=== PATIENT | female | born 1930 | race Caucasian/White ===

== ENCOUNTER → 2016-11-05 | Outpatient (CLI) | payer MEDICARE, BC ==
[~2016-11-05] MED LIST: ACET325T11 PO; ADVI200C9 PO; CROM5.2S; MAGN500T4 PO
[2016-11-05 16:03] LABS: BASOPHIL % 0.4 % (0.0-2.0); EOSINOPHIL % 0.7 % (0.0-4.0); HEMATOCRIT 40.9 % (35.0-46.0); HEMO FLAGS DIFF FINAL; LYMPH % 29.1 % (9.0-44.0); LYMPHOCYTE # 1.9 TH/MM3 (1.0-4.8); MEAN CELL VOLUME 90.2 FL (80.0-100.0); MEAN CORPUSCULAR HEMOGLOBIN 29.1 PG (27.0-34.0); MEAN CORPUSCULAR HGB CONC 32.3 % (32.0-36.0); MONO % 7.9 % (0.0-8.0); NEUT % 61.9 % (16.0-70.0); PLATELET COUNT 185 TH/MM3 (150-450); RED BLOOD COUNT 4.54 MIL/MM3 (4.00-5.30); RED CELL DISTRIBUTION WIDTH 13.7 % (11.6-17.2); WHITE BLOOD COUNT 6.5 TH/MM3 (4.0-11.0)
[2016-11-05 16:27] LABS: ANION GAP 6 MEQ/L (5-15); AST (GOT) 20 U/L (15-37); BICARBONATE 29.7 MEQ/L (21.0-32.0); BLOOD UREA NITROGEN 16 MG/DL (7-18); CHLORIDE 105 MEQ/L (98-107); GLOMERULAR FILTRATION RATE 68 ML/MIN (>89); GLUCOSE,FASTING 82 MG/DL (74-99); SODIUM (NA) 141 MEQ/L (136-145)
[2016-11-05 16:38] LABS: ALKALINE PHOSPHATASE 95 U/L (45-117); ALT (GPT) 20 U/L (10-53); HDL CHOLESTEROL 66.6 MG/DL (40.0-60.0); LDL CHOLESTEROL 129 MG/DL (0-99); TOTAL BILIRUBIN ADULT 0.8 MG/DL (0.2-1.0)
[2016-11-05 16:47] LABS: WESTERGREN SEDIMENTATION RATE 22 mm/hr (0-30)
== END ==
LOC: PLAB 11:24
PROVIDERS: ATTEND Family Medicine
DX: I10 Essential (primary) hypertension (principal); E78.2 Mixed hyperlipidemia; G25.0 Essential tremor; M85.80 Other specified disorders of bone density and structure, unspecified site; M62.81 Muscle weakness (generalized); R25.2 Cramp and spasm
CPT/HCPCS: 36415; 80053; 80061; 83735; 84443; 85025; 85652

== ENCOUNTER 2017-09-05 20:57 | Emergency (ER) | END 2017-09-06 00:02 | disposition home or self-care (01) | DX: J40 Bronchitis, not specified as acute or chronic (principal); B34.9 Viral infection, unspecified ==

== ENCOUNTER 2018-03-19 05:14 | Inpatient (IN) ==
[2018-03-19] MEDS ORDERED: Chlorhexidine Gluconate 2% 1 Pack (2 Cloths) TOPICAL ONE (05:42)
[2018-03-19] MEDS ORDERED: Metoprolol Tartrate 25 MG Tablet PO ONE (05:42)
[2018-03-19] MEDS ORDERED: Dexamethasone Inj 20 MG/5 ML Vial IV.PUSH ONE (05:44)
[2018-03-19] MEDS ORDERED: Chlorhexidine 4% Topical 120 APPLIC/120 ML Bottle TOPICAL SCH (05:45)
[2018-03-19] MEDS ORDERED: ceFAZolin 2 GM Premix Inj 2 GM/50 ML PIGGYBACK IV.SIG SCH (06:00)
[2018-03-19] MEDS ORDERED: Sodium Chlor 0.9% Inj 500 ML IV.SIG SCH (06:00)
[2018-03-19] MEDS ORDERED: Vancomycin Inj 1,000 MG in Sodium Chlor 0.9% Inj 250 ML IV.SIG SCH (06:00)
[2018-03-19] MEDS ORDERED: Sodium Chlor 0.9% Inj 40 ML, Bupivacaine Liposo PF 1.3% Inj 20 ML P-ARTICULR SCH ×2 (08:30)
[2018-03-19] MEDS ORDERED: TRANEXAMIC ACID IV.SIG SCH ×2 (08:30→13:00)
[2018-03-19] MEDS ORDERED: SODIUM CHLOR 0.9% IV.SIG SCH ×2 (08:30→13:00)
[2018-03-19] MEDS ORDERED: Aluminum/Magnesium/Simethacone Susp 30 ML UDC PO PRN (10:20)
[2018-03-19] MEDS ORDERED: Bisacodyl 10 MG Supp RECTAL PRN (10:20)
[2018-03-19] MEDS ORDERED: Post-op Orders (for Pharmacy) OTHER STA (10:20)
[2018-03-19] MEDS ORDERED: Morphine Inj 4 MG/ML Vial IV.PUSH PRN (10:20)
--- NOTE | 2018-03-19 10:26 | P.OP ---
- Preoperative Diagnosis (1) Osteoarthritis of left hip - Postoperative Diagnosis (1) Osteoarthritis of left hip Date of procedure: 03/19/18 Procedure: left total hip arthroplasty Anesthesia: GETA Surgeon: Danie Alvarez MD Thermal Spray Operator: PEBBLES Acosta The surgical procedure was assisted by my Advanced Registered Nurse Practitioner. My RIB MATCHER AND FITTER presence was necessary throughout this case for the manipulation and positioning of the surgical extremity. My RIB MATCHER AND FITTER was assisting me throughout the duration of this procedure. The skill set of an Advance Registered Nurse Practitioner was medically necessary to complete this procedure. During the surgical case, the certified surgical technician was working at the back table and the Advance Registered Nurse Practitioner was directly assisting me. Operation and Findings: IMPLANT DESCRIPTION (i'mmauy): 1. Thornton Gription Cup, acetabular size 50. 2. Thornton AltrX polyethylene, neutral. 4. Corail femoral stem size 11, no collar, standard offset. 5. Femoral head/neck metal, 32, +1. ESTIMATED BLOOD LOSS: 200 cc. JUSTIFICATION FOR PROCEDURE: The patient has end-stage osteoarthritis to the hip. There is an attached conservative measures pathway form in the chart that describes the nonoperative measures that were undertaken prior to consideration of surgical management. The patient understood the risks and benefits of surgical management. See my office notes for further details. PROCEDURE: The patient was brought back to the operative theatre. Adequate anesthesia was obtained. The patient received intravenous vancomycin and Ancef. The patient was carefully placed on the operative table. The lower extremity was prepped and draped in the usual sterile fashion. Fluoroscopic images were obtained. We made a standard anterior incision over the hip. We dissected through the TFL fascia, exposing the anterior capsule. Arthrotomy was performed in a T-shaped fashion. The capsule was tagged with a #2 FiberWire. End-stage arthritis was identified. Osteotomy was performed through the femoral neck exposing the acetabulum. Remnants of the labrum were resected and osteophytes were removed. We sequentially reamed the acetabulum. We trialed the hip and placed the final cup into position. This was done under fluoroscopic guidance to obtain the appropriate inclination and anteversion. A manhole cover was placed into the acetabular component. We then placed the final polyethylene into position and confirmed that it was well seated. Capsular attachments on the calcar and the inner aspect of the greater trochanter were resected. On the proximal aspect of the femur we used a rongeur , box osteotome, canal finder, sequential broaches and lateralizing rasp. We calcar planed the proximal femur. Then thoroughly irrigated the wound. We trialed the hip with the appropriate size stem. We placed the final stem in to position and trialed again. The hip was stable while it was externally rotated 70 degrees when the leg was lowered to the floor. The final head was applied, and final fluoroscopic images were obtained. The wound was thoroughly irrigated again. Interarticular injection of liposomal bupivacaine was given. The capsule was closed with #2 FiberWire and #1 Vicryl. The deep fascia was closed with a #2 Stratafix, followed by 2-0 Vicryl in the skin and Dermabond dressing. Postop plan is to weight-bear as tolerated. DVT prophylaxis will be performed with SCDs, TAY hose, early mobilization, and aspirin.
--- NOTE | 2018-03-19 10:53 | XR ---
EXAM DATE: 03/19/2018 10:23 AM EST AGE/SEX: 87 years / Female INDICATIONS: Post-op total left hip arthroplasty. CLINICAL DATA: This is the patient's initial encounter. Patient reports that signs and symptoms have been present for 1 day and indicates a pain score of Nonresponsive. MEDICAL/SURGICAL HISTORY: Non-responsive. . Total right hip arthroplasty. COMPARISON: No prior exams available for comparison. FINDINGS: Intraoperative examination demonstrates the patient's orthopedic hardware to be in excellent position . Alignment is good. CONCLUSION: Orthopedic hardware in excellent position. Electronically signed by: Cm Bernardo MD 03/19/2018 10:51 AM EST
[2018-03-19] MEDS ORDERED: *morphine SULFATE 4 MG/ML PERIprocedure ONLY ONE ×2 (11:01→11:28)
[2018-03-19] MEDS ORDERED: fentaNYL Citrate Inj 100 MCG/2 ML Ampul ONE (11:15)
[2018-03-19] MEDS: Sod Chloride 0.9% Inj 1,000 ML IV.CONT SCH (11:30)
--- NOTE | 2018-03-19 11:57 | XR ---
EXAM DATE: 03/19/2018 11:51 AM EST AGE/SEX: 87 years / Female INDICATIONS: Post op left hip surgery. CLINICAL DATA: This is the patient's initial encounter. Patient reports that signs and symptoms have been present for 1 day and indicates a pain score of 7/10. MEDICAL/SURGICAL HISTORY: None. None. COMPARISON: POI, XR HIP AP AND LAT, LEFT, 11/20/2017. . FINDINGS: Left total hip arthroplasty is present. Hardware appears intact. Alignment is anatomic. Right PORTER is also noted, satisfactory appearance. There is no evidence of bony pelvic abnormality. Multiple pelvic phleboliths are present incidentally. CONCLUSION: Satisfactory appearance of left PORTER Electronically signed by: Aman Ramesh MD 03/19/2018 11:55 AM EST
--- NOTE | 2018-03-19 12:25 | P.DCO ---
- Physical Therapy Physical Therapy: Gait training, Transfer training, bed to chair Hip: Total hip Left Lower Extremity Weight Bearing: Weight bearing as tolerated Left Lower Extremity Range of Motion: Active ROM - Nursing Dressing changes: Do not change dressing Additional instructions: First dressing change in the office. - Certification Need for Home Health services: I have seen patient Varsha Butcher on 03/19/18. My clinical findings support the need for the requested home health care services because: Need for Home Health Services: Limited ability to care for self, High risk of falls Homebound Certification: I certify that my clinical findings support that this patient is homebound because: Homebound Certification: Post-op weakness, Unsteady gait/balance
[2018-03-19] MEDS: ceFAZolin 1 GM Premix Inj 1 GM/50 ML FROZ.PIGGY IV.SIG SCH ×2 (14:54→21:26)
[2018-03-19] MEDS ORDERED: Zolpidem Tartrate 5 MG Tablet PO PRN (21:00)
[2018-03-19] MEDS: Multivitamin/Minerals Therapeutic Tablet PO SCH (21:23)
[2018-03-19] MEDS: Senna/Docusate Sodium 8.6/50 MG Tablet PO SCH (21:23)
[2018-03-20] MEDS: ceFAZolin 1 GM Premix Inj 1 GM/50 ML FROZ.PIGGY IV.SIG SCH (02:58)
[2018-03-20] MEDS: Sod Chloride 0.9% Inj 1,000 ML IV.CONT SCH ×2 (06:03→15:12)
[2018-03-20 06:47] LABS: Hematocrit 33.5 % (35.0-46.0); Hemoglobin 11.1 gm/dL (11.6-15.3)
--- NOTE | 2018-03-20 07:22 | P.PNOP ---
Subjective Interval history: The patient is resting comfortably in bed in no acute distress. The patient does report some mild to moderate discomfort to the hip with movement. The patient is considering going home with home health but has requested additional stay in the hospital until comfortable to go home. Physical Exam Vital signs: Vital Signs 03/19/18 07:32 03/19/18 10:55 03/19/18 11:00 Temperature 97.9 F 98.4 F Pulse Rate 73 91 H 90 Respiratory Rate 16 15 16 Blood Pressure 166/75 H 139/67 131/65 Pulse Oximetry 96 97 96 03/19/18 11:15 03/19/18 11:30 03/19/18 11:45 Temperature 97.5 F L Pulse Rate 93 H 87 83 Respiratory Rate 23 20 18 Blood Pressure 111/57 L 123/59 L 124/60 Pulse Oximetry 96 97 97 03/19/18 12:00 03/19/18 15:27 03/19/18 16:00 Temperature 97.5 F L Pulse Rate 79 80 Respiratory Rate 16 14 16 Blood Pressure 116/59 L 131/67 Pulse Oximetry 97 97 03/19/18 19:53 03/19/18 20:00 03/20/18 00:00 Temperature 98.7 F 98.4 F Pulse Rate 86 84 Respiratory Rate 18 16 16 Blood Pressure 113/55 L 119/58 L Pulse Oximetry 94 L 93 L 03/20/18 04:00 Temperature 98.2 F Pulse Rate 82 Respiratory Rate 16 Blood Pressure 123/58 L Pulse Oximetry 93 L Intake & Output 03/19/18 03/20/18 03/20/18 18:59 06:59 18:59 Intake Total 1756.06 / 1756.06 1770 / 1770 Output Total 200 / 200 Balance 1556.06 / 1556.06 1770 / 1770 Weight 60.6 kg 61.6 kg Intake: IV 406.06 / 406.06 1150 / 1150 NS Inj 1,000 ML @ 80 mls/hr IV. 1000 / 1000 CONT .[id number] [facility] Rx#:[id number] Cyklokapron Inj 606 MG In NS 106.06 / 106.06 Inj 100 ML @ 200 mls/hr IV.SIG ONCE [facility] Rx#:[id number] Vancomycin Inj 1,000 MG In NS 250 / 250 Inj 250 ML @ 250 mls/hr IV.SIG AMMONIA OPERATOR [facility] Rx#:[id number] Ancef 1 GM Premix Inj 1 gm In 150 / 150 50 ml @ 100 mls/hr IV.SIG Q6H [facility] Rx#:[id number] Ancef 2 GM Premix Inj 2 gm In 50 / 50 50 ml @ 100 mls/hr IV.SIG AMMONIA OPERATOR [facility] Rx#:[id number] Oral 620 / 620 Anesthesia Amount 1350 / 1350 Output: Estimated Blood Loss 200 / 200 Other: # Voids 2 Date of Last Bowel Movement 03/19/18 03/19/18 Weight On Admission 60.6 kg Narrative: The patient's dressing is clean, dry, and intact. EHL/TA/G are intact. 2+ pedal pulse. The patient's calf is soft and nontender. Sensation is intact to light touch distally. Results - Labs CBC & Chem 7: 03/20/18 06:04 Laboratory Results - last 24 hr 03/19/18 03/20/18 07:20 06:04 Hgb 11.1 L Hct 33.5 L Blood Type O Positive Blood Type Recheck Required Antibody Screen Negative - Imaging Impressions Hip X-Ray 03/19/18 00:00 CONCLUSION: Orthopedic hardware in excellent position. Hip X-Ray 03/19/18 10:19 CONCLUSION: Satisfactory appearance of left PORTER - Procedures Left total hip arthroplasty Assessment and Plan - Problem List (1) Status post total hip replacement, left Code(s): Z96.642 - Presence of left artificial hip joint Status: Acute (2) Osteoarthritis of left hip Code(s): M16.12 - Unilateral primary osteoarthritis, left hip Status: Acute - Assessment and Plan POD #1: Left total hip arthroplasty 1. Weightbearing as tolerated on left lower extremity. 2. Aspirin 81 mg twice daily for DVT prophylaxis. 3. Ice as needed for swelling. 4. Stable per ortho for discharge to home health in 2-3 days postop if able to navigate stairs. 5. The patient will follow up with Dr. Alvarez and/or PEBBLES Lewis as previously scheduled.
[2018-03-20] MEDS ORDERED: Dexamethasone Inj 20 MG/5 ML Vial IV.PUSH ONE (08:00)
[2018-03-20] MEDS: Senna/Docusate Sodium 8.6/50 MG Tablet PO SCH ×2 (08:29→20:09)
[2018-03-20] MEDS: Multivitamin/Minerals Therapeutic Tablet PO SCH ×2 (10:33→20:09)
[2018-03-20 20:58] VITALS: RESP 18
[2018-03-21 06:06] LABS: Hematocrit 30.6 % (35.0-46.0); Hemoglobin 10.4 gm/dL (11.6-15.3)
[2018-03-21 09:29] VITALS: BP 139/67; PULSE 68; TEMP 97.9; O2SAT 93
[2018-03-21] MEDS: Multivitamin/Minerals Therapeutic Tablet PO SCH (09:32)
[2018-03-21] MEDS: Senna/Docusate Sodium 8.6/50 MG Tablet PO SCH (09:32)
--- NOTE | 2018-03-21 11:35 | P.PNOP ---
Subjective Interval history: Patient is out of bed in chair. The patient complains of some mild burning pain to the left hip with left lower extremity weakness. Pain is stable with pain medication. Physical Exam Vital signs: Vital Signs 03/20/18 12:00 03/20/18 15:13 03/20/18 16:00 Temperature 97.7 F 97.6 F Pulse Rate 79 65 Respiratory Rate 17 18 17 Blood Pressure 123/60 119/62 Pulse Oximetry 93 L 91 L 03/20/18 20:00 03/21/18 00:00 03/21/18 08:00 Temperature 98.3 F 98.2 F 97.9 F Pulse Rate 71 75 68 Respiratory Rate 18 18 18 Blood Pressure 113/53 L 150/75 H 139/67 Pulse Oximetry 93 L 94 L 93 L Intake & Output 03/20/18 03/21/18 03/21/18 18:59 06:59 18:59 Intake Total 600 / 600 60 / 60 Balance 600 / 600 60 / 60 Weight 60.6 kg Intake: Oral 600 / 600 60 / 60 Other: # Voids 3 1 Date of Last Bowel Movement 03/19/18 03/19/18 # Bowel Movements 0 0 Narrative: The patient's dressing is clean, dry, and intact. EHL/TA/G are intact. 2+ pedal pulse. The patient's calf is soft and nontender. Sensation is intact to light touch distally. The patient has normal weakness with her hip flexors and abductors. Results - Labs CBC & Chem 7: 03/21/18 05:40 Laboratory Results - last 24 hr 03/21/18 05:40 Hgb 10.4 L Hct 30.6 L - Procedures Left total hip arthroplasty Assessment and Plan - Problem List (1) Status post total hip replacement, left Code(s): Z96.642 - Presence of left artificial hip joint Status: Acute (2) Osteoarthritis of left hip Code(s): M16.12 - Unilateral primary osteoarthritis, left hip Status: Acute - Assessment and Plan POD #2: Left total hip arthroplasty 1. Weightbearing as tolerated on left lower extremity. 2. Aspirin 81 mg twice daily for DVT prophylaxis. 3. Ice as needed for swelling. 4. Stable per ortho for discharge to SNF in 2-3 days postop. Patient has 13 stairs to navigate at home and does not feel comfortable being able to do this at this time. The patient has requested [facility]. The outpatient case manager will contact Carlie to discuss this at our office. 5. The patient will follow up with Dr. Alvarez and/or PEBBLES Lewis as previously scheduled.
--- NOTE | 2018-03-21 17:03 | P.DS ---
Date of admission: 03/19/18 10:19 Primary care physician: Ju Pan MD Attending physician on discharge: Danie Alvarez Anticipated date of discharge: 03/21/18 Brief History from admission: The patient was admitted to the hospital for severe OA of the left hip to have a left PORTER DS: Diagnosis - Discharge Diagnosis (1) Status post total hip replacement, left Status: Acute (2) Osteoarthritis of left hip Status: Acute DS: Medications - Discharge Medications Prescriptions: aspirin [Adult Aspirin Regimen] 81 mg PO BID 30 Days #90 tab hydrocodone-acetaminophen [Paris] 1 - 2 tab PO Q4-6H #50 tab DS: Summary Hospital Course: The patient was admitted to the hospital for severe osteoarthritis of the [left ] hip to have a [left] total hip arthroplasty. The patient's surgery went well with no complication. The patient is on a [regular] diet. The patient's DVT prophylaxis includes use of [ASA 81 mg BID]. The patient is weightbearing as tolerated. The [facility] and will follow up in the office with Dr. Alvarez and/or PEBBLES Lewis as previously scheduled. - Time Spent with Patient Total time spent providing and/or coordinating discharge services: Greater than 30 minutes - Quality: VTE Deep Vein Thrombosis/Pulmonary Embolism Present on Admission: No Exam Vital signs: Vital Signs 03/20/18 20:00 03/21/18 00:00 03/21/18 08:00 Temperature 98.3 F 98.2 F 97.9 F Pulse Rate 71 75 68 Respiratory Rate 18 18 18 Blood Pressure 113/53 L 150/75 H 139/67 Pulse Oximetry 93 L 94 L 93 L Intake & Output 03/20/18 03/21/18 03/21/18 18:59 06:59 18:59 Intake Total 600 / 600 60 / 60 Balance 600 / 600 60 / 60 Weight 60.6 kg Intake: Oral 600 / 600 60 / 60 Other: # Voids 3 1 Date of Last Bowel Movement 03/19/18 03/19/18 03/18/18 # Bowel Movements 0 0 Narrative: The patient's dressing is clean, dry, and intact. EHL/TA/G are intact. 2+ pedal pulse. The patient's calf is soft and nontender. Sensation is intact to light touch distally. The patient has normal weakness with her hip flexors and abductors. Results Procedures completed during hospitalization: Left total hip arthroplasty Labs on day of discharge: Labs from last 24 hours 03/21/18 05:40 Hgb 10.4 L Hct 30.6 L - Impressions ITS Impressions Hip X-Ray 03/19/18 10:19 CONCLUSION: Satisfactory appearance of left PORTER Discharge Plan - Discharge Disposition Patient Disposition: 06 Disch W/Home Health Service - Discharge Condition Condition: Stable - Discharge Order Discharge Orders: Discharge Order (Routine); Ordered 03/19/18 Ordered By: Cm Puente - Discharge Details Anticipated Discharge Date: 03/21/18 - Physicians Team Primary Care Provider: Ju Pan Attending Provider: Danie Alvarez Other Providers: [facility], - Rxs /Orders / Referrals /Forms Prescriptions: New aspirin [Adult Aspirin Regimen] 81 mg Tablet,Delayed Release (Dr/Ec) 81 mg PO BID 30 Days Qty: 90 RF: 0 hydrocodone-acetaminophen [Paris] 5-325 mg Tablet 1 - 2 tab PO Q4-6H Qty: 50 RF: 0 Discontinued acetaminophen [Acetaminophen Extra Strength] 500 mg Tablet 500 mg PO Q6H PRN (Reason: Pain) turmeric 400 mg Capsule 1 cap PO DAILY Ambulatory Orders / Order Sets / DME: Adjustable Commode 3-in-1 (1 each) (Routine) Location: Determined by Patient Ordered By: Cm Puente Walker With Front Wheels (1 each) (Routine) Location: Determined by Patient Ordered By: Cm Puente Referrals: Danie Alvarez MD [Physician] - See Instructions (f/u in the office as previously scheduled with Dr Alvarez or Michael Puente, [employer] ) Ju Pan MD [Primary Care Provider] - See Instructions - Discharge Instructions Patient Printed Instructions: Hydrocodone/Acetaminophen (By mouth), Aspirin ( By mouth), How to Choose and Use a Walker (GEN), TAY Hose (DC), Total Hip Replacement (DC) Additional Instructions: Full weight bearing Follow Up with Dr Alvarez as directed - Post Discharge Care Plan Care Plan Goals: Discharge Care Plan Goals for Total Hip Replacement You had a hip replacement surgery. This means your natural hip was replaced with an artificial joint (prosthesis). You may be recovering at home or in a rehabilitation facility. Either way, you must take care of your new hip. Here are some goals to help you heal well. Directions to Meet your Goals: 1. Activity & Exercises: * Take pain medicine as directed by your doctor. * Dont drive until your doctor says its OK. And never drive while taking opioid pain medicine. * Wear the support stockings you were given in the hospital as directed by your surgeon. * Dont sit for more than 30 to 45 minutes at one time. * Dont lean forward while sitting. * Dont cross your legs. * Keep your feet flat on the floor. Dont turn your foot or leg inward. This stresses your hip joint. * Use an elevated toilet seat for 6 weeks after surgery. * Nap if you are tired, but dont stay in bed all day. * Sit on a firm cushion when you ride in a car and avoid sitting too low. Try not to bend your hip too much when getting in and out of the car. 2. Prevent Falls/Injury: * Follow your doctors orders regarding how much weight to put on the affected leg. * Dont bend at the hip when you bend over. Don't bend at the waist to put on socks and shoes. And avoid picking up items from the floor. * Use a cane, crutches, a walker, or handrails until your balance, flexibility, and strength improve. And remember to ask for help from others when you need it. * Free up your hands so that you can use them to keep balance. Use a ridge pack , apron, or pockets to carry things. * Arrange your household to keep the items you need handy. Keep everything else out of the way. * Remove items that may cause you to fall, such as throw rugs and electrical cords. * Use nonslip bath mats, grab bars, an elevated toilet seat, and a shower chair in your bathroom * Sit on a shower stool or chair when you shower to keep from falling. 3. Precautions: * Prevent infection. Any infection will need to be treated immediately. Call your doctor right away if you think you might have an infection. * Tell your dentist that you have an artificial joint and take antibiotics as prescribed before any dental work. * Tell all your healthcare providers about your artificial joint before any medical procedure. * Maintain a healthy weight. Get help to lose any extra pounds. Added body weight puts stress on the joints. 4. Incision Care: * Prevent infection by washing your hands often. If an infection occurs, it will need to be treated right away. * Call your doctor right away if you think you may have an infection. Symptoms include a fever or an incision that leaks white, green, or yellow fluid. * Don't soak your incision in water until your doctor says its OK. This means no hot tubs, bathtubs, or swimming pools. * Follow your doctor's instructions for changing the dressing. * Dont rub the incision, or apply creams or lotions to it. * If you notice any redness or drainage around the bandage site, contact your surgeon's office immediately. 5. Follow-Up: Do Not miss your follow-up appointment. Keep up with all your appointments and yearly check ups When to call your doctor: Call your doctor right away if you have: Hip pain gets worse Pain or swelling in your calf or leg not related to your incision Tenderness or redness in your calf Fever of 100.4F (38C) or higher, or as directed by your healthcare provider Shaking chills Swelling or redness at the incision site gets worse Fluid draining from the incision Call 911: Call 911 right away if you have: Chest pain Shortness of breath Any pain or tenderness in your calf
== END 2018-03-21 14:11 ==
LOC: HSDC 05:14 → EDSTATUS 08:30 → HSDI 10:19 → N06 15:40
PROVIDERS: ADMIT Orthopaedic Surgery; ATTEND Orthopaedic Surgery